=== PATIENT | male | born 2005 | race African-American/Black ===

== ENCOUNTER 2024-07-22 16:54 | Emergency (ER) | payer SELFPAY ==
[~2024-07-22] VITALS: Ht 172.7 cm; Wt 59.0 kg
[2024-07-22 17:06] VITALS: O2SAT 99
[2024-07-22] MEDS ORDERED: KETOROLAC 30MG/ML VIAL IM ONE (18:30)
[2024-07-22] MEDS ORDERED: IBUP-2029 MT (20:30)
[2024-07-22 20:40] VITALS: TEMP 37.11408; O2SAT 99
[2024-07-22 20:51] VITALS: BP 116/65; PULSE 82; RESP 16
[2024-07-22] MEDS: KETOROLAC 30MG/ML VIAL IM NR (20:51)
== END 2024-07-22 20:40 | disposition home or self-care (01) ==
LOC: ER 16:54
DX: S16.1XXA Strain of muscle, fascia and tendon at neck level, initial encounter (principal); M79.641 Pain in right hand; V49.40XA Driver injured in collision with unspecified motor vehicles in traffic accident, initial encounter; Y93.89 Activity, other specified; Y92.410 Unspecified street and highway as the place of occurrence of the external cause; Y99.8 Other external cause status
CPT/HCPCS: 99284; 73130; 73562; 96372; L1830; J1885